=== PATIENT | female | born 1990 | race African-American/Black ===

== ENCOUNTER 2024-01-02 10:51 | Observation (INO) | payer MEDICAID, SELFPAY ==
[2024-01-02] VITALS (10 sets, daily range): BP systolic 121–130; BP diastolic 63–75; PULSE 72–81; O2SAT 100
--- NOTE | ~2024-01-02 | US_ITS ---
EXAMINATION: US OB follow up DATE: 01/02/2024 13:44 INDICATION: No care. Uncertain dates. TECHNIQUE: Real-time ultrasound of the pelvis was performed. COMPARISON: None. FINDINGS: There is a single living fetus in vertex presentation. The placenta is posterior. heart rate i s 155 beats per minute (bpm). The amniotic fluid index is 18.2 cm, which is normal. The following biometric data were obtained: Biparietal diameter (BPD): 6.6 cm; head circumference (HC): 24.0 cm; abdominal circumference (AC): 21 .9 cm; femur length (FL): 4.9 cm. These measurements are concordant. Estimated weight is 922 g +/- 138 g, which correlates with the <3rd percentile when 03/04/24 is used as estimated date of delivery. As single measurements, these parameters are each equal to the following estimated gestational ages: BPD: 26 weeks 4 days. HC: 26 weeks 1 days. AC: 26 weeks 2 days. FL: 26 weeks 3 days. estimated gestational age based solely on measurements from this exam is 26 weeks 3 days +/- 1 weeks 6 days. IMPRESSION: 1. Single living fetus in vertex presentation. 2. Small for gestational age. Estimated weight is 922 g +/- 138 g, which correlates with the < 3rd percentile when 03/04/24 is used as estimated date of delivery. Estimated date of delivery based s olely on measurements from this exam would be 04/06/2024. Reviewed, dictated and finalized at location A. [facility] IMPRESSION: 1. Single living fetus in vertex presentation. 2. Small for gestational age. Estimated weight is 922 g +/- 138 g, which correlates with the <3rd percentile when 03/04/24 is used as estimated date of delivery. Estimated date of delivery based solely on measurements from this exa m would be 04/06/2024.
--- NOTE | 2024-01-02 11:00 | OBADM ---
This patient, Joshua Deleon, admitted to the OB room OB Post 116 for observation. Patient/family oriented to hospital policies and general routines including ID bracelet, bed and alarms, visiting hours, pain management, procedures, bathroom and other care routines, personal items, smoking policy, room service/diet, and visiting hours. Patient/Family are encouraged to report perceived risks to care and to ask questions if they do not understand what they are told or what they should do.
[2024-01-02 13:38] LABS: Basophils Percent Auto 0.2 % (0.2-1.2); Eosinophils Absolute Auto 0.1 K/mm3 (0-0.3); Eosinophils Percent Auto 0.5 % (0-4.4); Hematocrit 32.5 % (37.0-47.0); Hemoglobin 10.6 g/dL (12.0-15.0); Immature Granulocyte Absolute 0.03 K/mm3 (0.00-0.031); Immature Granulocyte Percent A 0.3 % (0-0.5); Lymphocytes Absolute Auto 1.39 K/mm3 (0.9-3.2); Mean Corpuscular HGB Conc 32.6 g/dl (32-36); Mean Corpuscular Hemoglobin 30.6 pg (26-34); Mean Corpuscular Volume 93.9 fl (80-100); Mean Platelet Volume 9.6 fl (7.4-10.4); Monocytes Absolute Auto 0.6 K/mm3 (0.1-0.6); Monocytes Percent Auto 5.7 % (2.6-8.5); Neutrophils Absolute Auto 7.9 K/mm3 (1.3-6.7); Neutrophils Percent Auto 79.3 % (45.5-73.1); Platelet Count Result 401 k/mm3 (150-375); Red Blood Count 3.46 M/mm3 (4.2-5.4); Red Cell Distribution Width 13.3 % (11.5-14.5); White Blood Count 9.9 K/mm3 (4.5-10.0)
[2024-01-02 14:21] LABS: Appearance Urine Clear (Clear); Bilirubin Urine Negative (Negative); Blood Urine Negative (Negative); Color Urine Yellow (Yellow); Glucose Urine UA Negative (Negative); Ketones Urine Negative (Negative); Leukocyte Esterase Ur Negative LEU/UL (Negative); Nitrate Urine Negative (Negative); Protein Urine Negative (Negative); Specific Grav Ur 1.016 (1.001-1.035); Urobilinogen Urine 0.2 mg/dL (<2.0)
[2024-01-02 14:32] LABS: HIV 1/2 Ab P24 Ag Result Negative (Negative)
[2024-01-02 14:40] LABS: Add Urine Microscopic? NO
[2024-01-02 15:28] LABS: Hepatitis B Surface Antigen Negative (Negative); Rubella IgG Antibody 53.9 IU/ML
[2024-01-02 23:19] LABS: Amphetamine Screen Urine Negative (Negative); Barbiturate Screen Urine Negative (Negative); Benzodiazepines Screen Urine Negative (Negative); Cannabinoid Screen Urine Positive (Negative); Cocaine Screen Urine Negative (Negative); Methadone Screen Urine Negative (Negative); Opiate Screen Urine Negative (Negative); Phencyclidine Screen Urine Negative (Negative)
[2024-01-03 12:15] LABS: Rapid Plasma Reagin Non-Reactive (NonReactive)
--- NOTE | 2024-01-29 11:11 | PM.OBTRLD ---
OB - Triage/Final Diagnosis Visit Information Comments/Additional reasons for admission: I have assessed the risk for this patient, Joshua Deleon, and determined that she would benefit from observation care. Evaluation Laboratory results: Laboratory Tests 01/02/24 01/02/24 12:54 13:09 WBC 9.9 RBC 3.46 L Hgb 10.6 L Hct 32.5 L MCV 93.9 MCH 30.6 MCHC 32.6 RDW 13.3 Plt Count 401 H MPV 9.6 Immature Gran % (Auto) 0.3 Neut % (Auto) 79.3 H Lymph % (Auto) 14.0 L [place] % (Auto) 5.7 Eos % (Auto) 0.5 Baso % (Auto) 0.2 Lymph # (Auto) 1.39 [place] # (Auto) 0.6 Eos # (Auto) 0.1 Baso # (Auto) 0.0 Abs Immat Gran (auto) 0.03 Absolute Neuts (auto) 7.9 H Absolute Nucleated RBC 0.0 Nucleated RBC % 0.0 Urine Color Yellow Urine Appearance Clear Urine pH 6.0 Ur Specific [place] 1.016 Urine Protein Negative Urine Glucose (UA) Negative Urine Ketones Negative Ur Blood (Man) Negative Urine Nitrate Negative Urine Bilirubin Negative Urine Urobilinogen 0.2 Leukocyte Esterase Rfl Negative Urine Opiates Screen Negative Urine Methadone Screen Negative Ur Barbiturates Screen Negative Ur Phencyclidine Scrn Negative Ur Amphetamine Screen Negative U Benzodiazepines Scrn Negative Urine Cocaine Screen Negative U Cannabinoids Screen Positive A RPR Non-reactive Hep Bs Antigen Negative HIV 1&2 Ab/P24 Ag 4thGn Negative Rubella IgG Antibody 53.9 Blood Type O Positive Antibody Screen Negative Final Diagnosis (1) Abdominal pain affecting : Code(s): O26.899 - Other specified related conditions, unspecified trimester; R10.9 - Unspecified abdominal pain Status: Acute
== END 2024-01-02 14:45 | disposition home or self-care (01) ==
PROVIDERS: Admitting Provider Obstetrics & Gynecology; Visit Provider Obstetrics & Gynecology
DX: O26.892 Other specified pregnancy related conditions, second trimester (principal); R10.9 Unspecified abdominal pain; Z11.4 Encounter for screening for human immunodeficiency virus [HIV]; Z3A.26 26 weeks gestation of pregnancy
CPT/HCPCS: 36415; 76816; 80307; 81003; 85025; 86592; 86703; 86762; 86850; 86900; 86901; 87340; G0378; G0379; G0432

== ENCOUNTER 2024-01-14 13:59 | Observation (INO) | payer MEDICAID, SELFPAY ==
[2024-01-14 14:15] VITALS: BP 120/81; PULSE 92
[2024-01-14 14:31] VITALS: BP 115/49; PULSE 84
[2024-01-14 14:42] LABS: Appearance Urine Cloudy (Clear); Bacteria Urine 1+ /hpf; Bilirubin Urine Negative (Negative); Blood Urine Negative (Negative); Color Urine Yellow (Yellow); Glucose Urine UA Negative (Negative); Ketones Urine Negative (Negative); Leukocyte Esterase Ur Negative LEU/UL (Negative); Nitrate Urine Negative (Negative); Non Pathogenic Casts 0-2; Protein Urine Trace mg/dL (Negative); RBC Urine 0-2 /hpf (0-2); Specific Grav Ur 1.023 (1.001-1.035); Squamous Epithelial Cell Urine Occasional /hpf (Few)
[2024-01-14 14:49] LABS: Add Urine Microscopic? YES
[2024-01-14 14:59] LABS: Basophils Percent Auto 0.2 % (0.2-1.2); Eosinophils Absolute Auto 0.1 K/mm3 (0-0.3); Eosinophils Percent Auto 1.2 % (0-4.4); Hematocrit 30.7 % (37.0-47.0); Hemoglobin 9.8 g/dL (12.0-15.0); Immature Granulocyte Absolute 0.04 K/mm3 (0.00-0.031); Immature Granulocyte Percent A 0.4 % (0-0.5); Lymphocytes Absolute Auto 1.92 K/mm3 (0.9-3.2); Lymphocytes Percent Auto 19.2 % (18.3-44.2); Mean Corpuscular HGB Conc 31.9 g/dl (32-36); Mean Corpuscular Hemoglobin 29.6 pg (26-34); Mean Corpuscular Volume 92.7 fl (80-100); Mean Platelet Volume 9.3 fl (7.4-10.4); Monocytes Absolute Auto 0.7 K/mm3 (0.1-0.6); Monocytes Percent Auto 7.4 % (2.6-8.5); Neutrophils Absolute Auto 7.2 K/mm3 (1.3-6.7); Neutrophils Percent Auto 71.6 % (45.5-73.1); Platelet Count Result 382 k/mm3 (150-375); Red Blood Count 3.31 M/mm3 (4.2-5.4); Red Cell Distribution Width 13.2 % (11.5-14.5)
[2024-01-14 15:00] VITALS: BP 133/83; PULSE 94; BMI 35.9
--- NOTE | 2024-01-14 15:02 | OBADM ---
This patient, Joshua Deleon, admitted to the OB room OB Post 117 for observation. Patient/family oriented to hospital policies and general routines including ID bracelet, bed and alarms, visiting hours, pain management, procedures, bathroom and other care routines, personal items, smoking policy, room service/diet, and visiting hours. Patient/Family are encouraged to report perceived risks to care and to ask questions if they do not understand what they are told or what they should do.
[2024-01-14 15:12] LABS: Alanine Aminotransferase 14 U/L (6-35); Albumin Level 3.6 g/dL (3.5-5.1); Alkaline Phosphatase 125 U/L (38-126); Anion Gap 4 mmol/L (8-16); Aspartate Amino Transferase 18 U/L (14-36); Bilirubin,Total 0.2 mg/dL (0.2-1.3); Blood Urea Nitrogen 12 mg/dL (7-17); Calcium 8.9 mg/dL (8.4-10.2); Carbon Dioxide 24 mmol/L (22-30); Chloride 105 mmol/L (98-107); Estimated CRCL calculation 145 ml/min; Estimated Glomerular Filt Rate > 60; Glucose 104 mg/dL (65-110); Potassium 3.4 mmol/L (3.4-5.0); Sodium 133 mmol/L (137-145)
[2024-01-14] MEDS: FAMOTIDINE 20 MG TABLET PO (15:24)
[2024-01-14] MEDS: MAG HYDROX/AL HYDROX/SIMETH 30 ML UDC PO (15:24)
--- NOTE | 2024-01-16 23:29 | P.PNOB_ITS ---
OB - Triage/Final Diagnosis Visit Information Comments/Additional reasons for admission: I have assessed the risk for this patient, Joshua Deleon, and determined that she would benefit from observation care. Evaluation Laboratory results: Laboratory Tests 01/14/24 01/14/24 14:28 14:52 WBC 10.0 RBC 3.31 L Hgb 9.8 L Hct 30.7 L MCV 92.7 MCH 29.6 MCHC 31.9 L RDW 13.2 Plt Count 382 H MPV 9.3 Immature Gran % (Auto) 0.4 Neut % (Auto) 71.6 Lymph % (Auto) 19.2 [place] % (Auto) 7.4 Eos % (Auto) 1.2 Baso % (Auto) 0.2 Lymph # (Auto) 1.92 [place] # (Auto) 0.7 H Eos # (Auto) 0.1 Baso # (Auto) 0.0 Abs Immat Gran (auto) 0.04 H Absolute Neuts (auto) 7.2 H Absolute Nucleated RBC 0.0 Nucleated RBC % 0.0 Sodium 133 L Potassium 3.4 Chloride 105 Carbon Dioxide 24 Anion Gap 4 L BUN 12 Creatinine 0.50 L Estim Creat Clear Calc 145 Estimated GFR > 60 Glucose 104 Calcium 8.9 Total Bilirubin 0.2 AST 18 ALT 14 Alkaline Phosphatase 125 Total Protein 7.0 Albumin 3.6 Urine Color Yellow Urine Appearance Cloudy H Urine pH 7.0 Ur Specific [place] 1.023 Urine Protein Trace Urine Glucose (UA) Negative Urine Ketones Negative Ur Blood (Man) Negative Urine Nitrate Negative Urine Bilirubin Negative Urine Urobilinogen 1.0 Leukocyte Esterase Rfl Negative Urine RBC 0-2 Urine WBC 6-10 H Ur Squamous Epith Cells Occasional Urine Bacteria 1+ H Urine Casts 0-2 Final Diagnosis (1) Abdominal pain affecting : Code(s): O26.899 - Other specified related conditions, unspecified trimester; R10.9 - Unspecified abdominal pain Status: Acute
== END 2024-01-14 15:40 | disposition home or self-care (01) ==
PROVIDERS: Admitting Provider Obstetrics & Gynecology; Visit Provider Obstetrics & Gynecology
DX: O26.893 Other specified pregnancy related conditions, third trimester (principal); R10.9 Unspecified abdominal pain; Z3A.38 38 weeks gestation of pregnancy
CPT/HCPCS: 36415; 80053; 81001; 85025; 87086; A9270; G0378; G0379

== ENCOUNTER 2024-02-08 12:57 | Observation (INO) | payer MEDICAID, SELFPAY ==
[2024-02-08] VITALS (11 sets, daily range): BP systolic 112–139; BP diastolic 57–81; PULSE 71–82; BMI 37.8
--- NOTE | 2024-02-08 13:30 | OBADM ---
This patient, Joshua Deleon, admitted to the OB room 112 for observation. Patient/family oriented to hospital policies and general routines including ID bracelet, bed and alarms, visiting hours, pain management, procedures, bathroom and other care routines, personal items, smoking policy, room service/diet, and visiting hours. Patient/Family are encouraged to report perceived risks to care and to ask questions if they do not understand what they are told or what they should do.
[2024-02-08 14:36] LABS: Appearance Urine Clear (Clear); Bilirubin Urine Negative (Negative); Blood Urine Negative (Negative); Color Urine Dark Yellow (Yellow); Glucose Urine UA Negative (Negative); Ketones Urine Negative (Negative); Leukocyte Esterase Ur Negative LEU/UL (Negative); Nitrate Urine Negative (Negative); Protein Urine Negative (Negative); Specific Grav Ur 1.017 (1.001-1.035); pH Urine 8.5 (5.0-9.0)
[2024-02-08 14:48] LABS: Add Urine Microscopic? NO
[2024-02-08] MEDS: NIFEdipine 10 MG CAPSULE PO ×2 (15:40→16:13)
--- NOTE | 2024-02-29 11:58 | PM.OBTRLD ---
OB - Triage/Final Diagnosis Visit Information Comments/Additional reasons for admission: I have assessed the risk for this patient, Joshua Deleon, and determined that she would benefit from observation care. Evaluation Laboratory results: Laboratory Tests 02/08/24 14:20 Urine Color Dark yellow Urine Appearance Clear Urine pH 8.5 Ur Specific [place] 1.017 Urine Protein Negative Urine Glucose (UA) Negative Urine Ketones Negative Ur Blood (Man) Negative Urine Nitrate Negative Urine Bilirubin Negative Urine Urobilinogen 1.0 Leukocyte Esterase Rfl Negative Final Diagnosis (1) Abdominal pain affecting : Code(s): O26.899 - Other specified related conditions, unspecified trimester; R10.9 - Unspecified abdominal pain Status: Acute
== END 2024-02-08 18:18 | disposition home or self-care (01) ==
PROVIDERS: Admitting Provider Obstetrics & Gynecology; Visit Provider Obstetrics & Gynecology
DX: O26.893 Other specified pregnancy related conditions, third trimester (principal); R10.9 Unspecified abdominal pain; Z3A.31 31 weeks gestation of pregnancy
CPT/HCPCS: A9270; G0378; G0379

== ENCOUNTER 2024-02-17 11:48 | Observation (INO) | payer MEDICAID, SELFPAY ==
[2024-02-17 11:58] VITALS: BP 140/73; PULSE 85
[2024-02-17 12:00] VITALS: BP 124/58; PULSE 91
[2024-02-17 12:15] VITALS: BP 124/73; PULSE 92
[2024-02-17 12:18] VITALS: BMI 38.1
--- NOTE | 2024-02-17 12:19 | OBADM ---
This patient, Joshua Deleon, admitted to the OB room OB Post 116 for observation. Patient/family oriented to hospital policies and general routines including ID bracelet, bed and alarms, visiting hours, pain management, procedures, bathroom and other care routines, personal items, smoking policy, room service/diet, and visiting hours. Patient/Family are encouraged to report perceived risks to care and to ask questions if they do not understand what they are told or what they should do. Pt. arrives to unit via EMS, EFM X2 applied, abdomen soft and non-tender, pt. denies vaginal bleeding and LOF. Pt. reports abdominal pain since approx. 1000 this a.m., but that she did not feel well all day yesterday. She denies vomiting and diarrhea, states she had a regular BM today. Pt. is weepy, but denies any problems at home, denies any other problems at this time.
[2024-02-17 12:30] VITALS: BP 120/74; PULSE 79; TEMP 36.4
[2024-02-17 13:11] LABS: Appearance Urine Clear (Clear); Bacteria Urine None Seen /hpf; Bilirubin Urine Negative (Negative); Blood Urine Negative (Negative); Color Urine Dark Yellow (Yellow); Glucose Urine UA Negative (Negative); Ketones Urine Trace mg/dL (Negative); Leukocyte Esterase Ur Negative LEU/UL (Negative); Nitrate Urine Negative (Negative); Non Pathogenic Casts 0-2; Protein Urine 1+ mg/dL (Negative); RBC Urine 0-2 /hpf (0-2); Squamous Epithelial Cell Urine None Seen /hpf (Few); WBC Urine 0-5 /hpf (0-3)
[2024-02-17 13:12] LABS: Specific Grav Ur 1.031 (1.001-1.035)
[2024-02-17 13:13] LABS: Add Urine Microscopic? YES
--- NOTE | 2024-03-20 07:33 | PM.OBTRLD ---
OB - Triage/Final Diagnosis Visit Information Comments/Additional reasons for admission: I have assessed the risk for this patient, Joshua Deleon, and determined that she would benefit from observation care. Evaluation Laboratory results: Laboratory Tests 02/17/24 12:45 Urine Color Dark yellow Urine Appearance Clear Urine pH 7.0 Ur Specific [place] 1.031 Urine Protein 1+ H Urine Glucose (UA) Negative Urine Ketones Trace H Ur Blood (Man) Negative Urine Nitrate Negative Urine Bilirubin Negative Urine Urobilinogen 1.0 Leukocyte Esterase Rfl Negative Urine RBC 0-2 Urine WBC 0-5 Ur Squamous Epith Cells None seen Urine Bacteria None seen Urine Casts 0-2 Final Diagnosis (1) False labor: Code(s): O47.9 - False labor, unspecified Status: Acute
== END 2024-02-17 14:49 ==
PROVIDERS: Admitting Provider Obstetrics & Gynecology; Visit Provider Obstetrics & Gynecology
DX: O47.03 False labor before 37 completed weeks of gestation, third trimester (principal); Z3A.33 33 weeks gestation of pregnancy
CPT/HCPCS: 81001; G0378; G0379

== ENCOUNTER 2024-03-27 12:51 | Observation (INO) | payer OTHER, SELFPAY ==
[2024-03-27 13:16] VITALS: BP 144/98; PULSE 77
--- NOTE | 2024-03-27 13:39 | PC.NURSE ---
In to check on pt, Pt snoring.
[2024-03-27 13:41] VITALS: BP 131/78; PULSE 66
--- NOTE | 2024-03-27 15:31 | OBADM ---
This patient, Joshua Deleon, admitted to the OB room Labor/Delivery/Recovery 105 for observation. Patient/family oriented to hospital policies and general routines including ID bracelet, bed and alarms, visiting hours, pain management, procedures, bathroom and other care routines, personal items, smoking policy, room service/diet, and visiting hours. Patient/Family are encouraged to report perceived risks to care and to ask questions if they do not understand what they are told or what they should do.
--- NOTE | 2024-04-18 18:35 | PM.OBTRLD ---
OB - Triage/Final Diagnosis Visit Information Comments/Additional reasons for admission: I have assessed the risk for this patient, Joshua Deleon, and determined that she would benefit from observation care. Final Diagnosis (1) Abdominal pain affecting : Code(s): O26.899 - Other specified related conditions, unspecified trimester; R10.9 - Unspecified abdominal pain Status: Acute
== END 2024-03-27 14:30 | disposition home or self-care (01) ==
PROVIDERS: Admitting Provider Obstetrics & Gynecology; Visit Provider Obstetrics & Gynecology
DX: O26.893 Other specified pregnancy related conditions, third trimester (principal); R10.9 Unspecified abdominal pain; Z3A.38 38 weeks gestation of pregnancy
CPT/HCPCS: 84112; G0378; G0379

== ENCOUNTER 2024-03-30 05:10 | Inpatient (IN) | payer OTHER, SELFPAY ==
[2024-03-30] VITALS (65 sets, daily range): BP systolic 94–161; BP diastolic 53–98; PULSE 53–83; RESP 16–20; TEMP 36.1–36.7; O2SAT 97–100; BMI 44.9
[2024-03-30] MEDS: LACTATED RINGERS 1,000 ML 125 ML IV CONT (05:45)
[2024-03-30 06:00] LABS: Basophils Percent Auto 0.1 % (0.2-1.2); Eosinophils Absolute Auto 0.1 K/mm3 (0-0.3); Eosinophils Percent Auto 0.7 % (0-4.4); Hematocrit 34.2 % (37.0-47.0); Immature Granulocyte Absolute 0.03 K/mm3 (0.00-0.031); Immature Granulocyte Percent A 0.3 % (0-0.5); Lymphocytes Absolute Auto 2.05 K/mm3 (0.9-3.2); Lymphocytes Percent Auto 21.5 % (18.3-44.2); Mean Corpuscular HGB Conc 32.2 g/dl (32-36); Mean Corpuscular Hemoglobin 29.9 pg (26-34); Mean Corpuscular Volume 92.9 fl (80-100); Monocytes Absolute Auto 0.7 K/mm3 (0.1-0.6); Neutrophils Absolute Auto 6.7 K/mm3 (1.3-6.7); Neutrophils Percent Auto 70.4 % (45.5-73.1); Platelet Count Result 381 k/mm3 (150-375); Red Blood Count 3.68 M/mm3 (4.2-5.4); Red Cell Distribution Width 14.1 % (11.5-14.5); White Blood Count 9.6 K/mm3 (4.5-10.0)
[2024-03-30] MEDS: ACETAMINOPHEN 500 MG TABLET 1000 MG PO (06:00)
--- NOTE | 2024-03-30 06:34 | LDADM ---
This patient, Joshua Deleon, was admitted to Labor/Delivery/Recovery 120 on 03/30/24 at 05:10. Plans for labor, pain management and were discussed with patient. Patient/family oriented to hospital policies and general routines including ID bracelet, bed and alarms, visiting hours, pain management, procedures, bathroom and other care routines, personal items, smoking policy, room service/diet and guest tray routines, security routines, and visiting hours. Patient/Family are encouraged to report perceived risks to care and to ask questions if they do not understand what they are told or what they should do. See OBIX for further documentation.
[2024-03-30 06:48] LABS: Rubella IgG Antibody 54.6 IU/ML
[2024-03-30 06:50] LABS: HIV 1/2 Ab P24 Ag Result Negative (Negative)
--- NOTE | 2024-03-30 07:33 | WPDANESEPP ---
Anes - Eval Pre Procedure Procedure: Operation Date: 03/30/24 07:30 Proposed Procedures p Repeat Section - Zaid Gerardo MD Date/Time: 03/30/24 07:33 Pre Op Diagnosis: C/S Patient Data Age: 34 Gender: F Height: 1.6 m Weight: 115 kg Last Vital Signs Pulse 78 03/30/24 07:30 BP 137/75 03/30/24 07:30 O2 Del Method Room Air 03/30/24 06:35 Allergies Allergy/AdvReac Type Severity Reaction Status Date / Time No Known Allergies Allergy Verified 01/14/24 14:55 Laboratory Tests 03/30/24 03/30/24 05:25 05:58 WBC 9.6 K/mm3 (4.5-10.0) RBC 3.68 L M/mm3 (4.2-5.4) Hgb 11.0 L g/dL (12.0-15.0) Hct 34.2 L % (37.0-47.0) MCV 92.9 fl (80-100) MCH 29.9 pg (26-34) MCHC 32.2 g/dl (32-36) RDW 14.1 % (11.5-14.5) Plt Count 381 H k/mm3 (150-375) MPV 10.0 fl (7.4-10.4) Immature Gran % (Auto) 0.3 % (0-0.5) Neut % (Auto) 70.4 % (45.5-73.1) Lymph % (Auto) 21.5 % (18.3-44.2) [place] % (Auto) 7.0 % (2.6-8.5) Eos % (Auto) 0.7 % (0-4.4) Baso % (Auto) 0.1 L % (0.2-1.2) Lymph # (Auto) 2.05 K/mm3 (0.9-3.2) [place] # (Auto) 0.7 H K/mm3 (0.1-0.6) Eos # (Auto) 0.1 K/mm3 (0-0.3) Baso # (Auto) 0.0 K/mm3 (0.0-0.1) Abs Immat Gran (auto) 0.03 K/mm3 (0.00-0.031) Absolute Neuts (auto) 6.7 K/mm3 (1.3-6.7) Absolute Nucleated RBC 0.000 K/mm3 (0.0-0.012) Nucleated RBC % 0.0 % (0.0-0.2) RPR Pending HIV 1&2 Ab/P24 Ag 4thGn Negative (Negative) Rubella IgG Antibody 54.6 IU/ML (10 - ) Blood Type O Positive Antibody Screen Pending Patient hx anesthesia problems: none Family hx anesthesia problems: none Results Review: All pre-operative results and documents have been reviewed as part of the pre-operative evaluation. [facility] Family History Family History Mother Asthma Chronic obstructive pulmonary disease Hypertension Father Cerebrovascular accident Social History Social History Smoking status: Former smoker Second hand tobacco smoke exposure: Yes Last use: unknown, quit Do You Feel Safe in your Home?: Yes Lack of Transportation: No Lack of Food: Never True Current Housing: I Have Housing Concerned About Future Housing: No Difficulty Paying Gas/Electric Bills: No Difficulty Paying for Meds: No Currently Unemployed: No Education: High School Diploma/GED Difficulty w/ Childcare or Family Care: No Spiritual care concerns: No Exam Day of Procedure 03/30/24 07:33 Patient weight: obese Heart: regular rate and rhythm Lungs: clear to auscultation Airway: Mallampati scale Neurological: alert and oriented
--- NOTE | 2024-03-30 07:45 | WPDANESEPPF ---
Anes - Initial Pre Proc Eval Procedure: Operation Date: 03/30/24 07:30 Proposed Procedures p Repeat Section - Zaid Gerardo MD Date/Time: 03/30/24 07:45 Surgeon: Zaid Gerarod MD Pre Op Diagnosis: C/S Patient Data Age: 34 Gender: F Height: 1.6 m Weight: 115 kg Last Vital Signs Pulse 81 03/30/24 07:45 BP 145/81 H 03/30/24 07:45 O2 Del Method Room Air 03/30/24 06:35 Allergies Allergy/AdvReac Type Severity Reaction Status Date / Time No Known Allergies Allergy Verified 01/14/24 14:55 Laboratory Tests 03/30/24 03/30/24 05:25 05:58 WBC 9.6 K/mm3 (4.5-10.0) RBC 3.68 L M/mm3 (4.2-5.4) Hgb 11.0 L g/dL (12.0-15.0) Hct 34.2 L % (37.0-47.0) MCV 92.9 fl (80-100) MCH 29.9 pg (26-34) MCHC 32.2 g/dl (32-36) RDW 14.1 % (11.5-14.5) Plt Count 381 H k/mm3 (150-375) MPV 10.0 fl (7.4-10.4) Immature Gran % (Auto) 0.3 % (0-0.5) Neut % (Auto) 70.4 % (45.5-73.1) Lymph % (Auto) 21.5 % (18.3-44.2) [place] % (Auto) 7.0 % (2.6-8.5) Eos % (Auto) 0.7 % (0-4.4) Baso % (Auto) 0.1 L % (0.2-1.2) Lymph # (Auto) 2.05 K/mm3 (0.9-3.2) [place] # (Auto) 0.7 H K/mm3 (0.1-0.6) Eos # (Auto) 0.1 K/mm3 (0-0.3) Baso # (Auto) 0.0 K/mm3 (0.0-0.1) Abs Immat Gran (auto) 0.03 K/mm3 (0.00-0.031) Absolute Neuts (auto) 6.7 K/mm3 (1.3-6.7) Absolute Nucleated RBC 0.000 K/mm3 (0.0-0.012) Nucleated RBC % 0.0 % (0.0-0.2) RPR Pending HIV 1&2 Ab/P24 Ag 4thGn Negative (Negative) Rubella IgG Antibody 54.6 IU/ML (10 - ) Blood Type O Positive Antibody Screen Negative Patient hx anesthesia problems: none Family hx anesthesia problems: none Results Review: All pre-operative results and documents have been reviewed as part of the pre-operative evaluation. [facility] Family History Family History Mother Asthma Chronic obstructive pulmonary disease Hypertension Father Cerebrovascular accident Social History Social History Smoking status: Former smoker Second hand tobacco smoke exposure: Yes Last use: unknown, quit Do You Feel Safe in your Home?: Yes Lack of Transportation: No Lack of Food: Never True Current Housing: I Have Housing Concerned About Future Housing: No Difficulty Paying Gas/Electric Bills: No Difficulty Paying for Meds: No Currently Unemployed: No Education: High School Diploma/GED Difficulty w/ Childcare or Family Care: No Spiritual care concerns: No Anes - Eval Final PreProcedure Day of Procedure 03/30/24 07:45 Patient weight: morbidly obese Heart: regular rate and rhythm Lungs: clear to auscultation Airway: Mallampati scale class II Neurological: lethargic Last oral intake: >/= 8 hours ASA classification: III Emergent: no Anesthetic plan: proceed Anesthesia type and monitoring: regional spinal and standard monitoring Results Review: All pre-operative results and documents have been reviewed as part of the pre-operative evaluation. Informed Consent: The patient's anesthetic plan and its attendant risks and benefits were discussed with the patient/family/POA. Questions were solicited and answers provided to the satisfaction of the patient/family/POA.
[2024-03-30] MEDS: ceFAZolin 2 GM/D5W 50 ML 2 GM/50 ML BAG IVPB (07:46)
[2024-03-30] MEDS: ONDANSETRON INJ 4 MG/2 ML VIAL IV PUSH (07:47)
[2024-03-30] MEDS: FAMOTIDINE 20 MG/2 ML VIAL IV PUSH (07:49)
--- NOTE | 2024-03-30 08:59 | WPDHPUPDATE1 ---
History and Physical Update Update Date/Time: 03/30/24 08:59 History and Physical has been reviewed, including an updated exam of the patient. There are NO changes in the patient's condition. Risks, benefits, and alternatives have been discussed and questions answered. Patient agrees to proceed with procedure.
--- NOTE | 2024-03-30 08:59 | PM.IMHP ---
H&P: HPI History of Present Illness Date/Time: 03/30/24 08:59 Chief Complaint: term Narrative: This patient is a 34-year-old multiparous female with a term gestation and a previous delivery. We agreed to repeat delivery. The patient understands the details of the procedure. The procedure has been explained in detail. She understands the risks. She understands that injuries may occur that result in hospitalization, more surgery, and severe illness. She understands risk of hemorrhage and infection. She denies any chest pain or shortness of breath. She denies any nausea, vomiting, fever, chills. Review of Systems Review of Systems: All systems reviewed & are unremarkable except as noted in HPI and below Constitutional: Constitutional: Denies chills, Denies fatigue, Denies fever(s) and Denies weakness Eyes: Eyes: Denies blurry vision, Denies change in vision, Denies loss of peripheral vision, Denies loss of vision, Denies other visual disturbances and Denies eye pain ENT: Denies vertigo, Denies dizziness, Denies hearing loss, Denies mouth pain, Denies nasal obstruction, Denies neck mass and Denies neck pain Cardiovascular: Cardiovascular: Denies chest pain, Denies diaphoresis, Denies syncope, Denies leg edema and Denies dyspnea Respiratory: Respiratory: Denies chest congestion, Denies cough, Denies hemoptysis, Denies dyspnea and Denies wheezing Gastrointestinal: Gastrointestinal: Denies abdominal pain, Denies constipation, Denies diarrhea, Denies nausea and Denies vomiting Genitourinary: Genitourinary: Denies hematuria, Denies change in libido, Denies nocturia, Denies genital lesions, Denies flank pain and Denies urinary urgency Musculoskeletal: Musculoskeletal: Denies abnormal gait, Denies back pain, Denies myalgias, Denies arthralgias, Denies joint swelling, Denies muscle weakness and Denies neck pain Integumentary/Breasts: Skin/Breast: Denies swelling, Denies breast pain, Denies breast mass, Denies dry skin, Denies nipple discharge, Denies unusual bruising and Denies jaundice Neurologic: Denies Neuro-related abnormal movements, Denies Abnormal speech present, Denies abnormal gait, Denies behavioral changes, Denies confusion, Denies vertigo, Denies dizziness, Denies syncope, Denies loss of vision, Denies memory loss, Denies convulsions and Denies weakness Psychiatric: Psychiatric: Denies abnormal sleep pattern, Denies behavioral changes, Denies change in libido, Denies confusion, Denies depression, Denies anhedonia and Denies memory loss Endocrine: Endocrine: Reports no additional endocrine complaints, Denies change in libido and Denies fatigue Hematologic/Lymphatic: Hematologic/Lymphatic: Reports no additional hematologic/lymphatic complaints Allergic/Immunologic: Allergic/Immunologic: Reports no additional allergic/immunologic complaints and Denies wheezing PMFSH Family History Family History Mother Asthma Chronic obstructive pulmonary disease Hypertension Father Cerebrovascular accident Social History Social History Smoking status: Former smoker Second hand tobacco smoke exposure: Yes Last use: unknown, quit Do You Feel Safe in your Home?: Yes Lack of Transportation: No Lack of Food: Never True Current Housing: I Have Housing Concerned About Future Housing: No Difficulty Paying Gas/Electric Bills: No Difficulty Paying for Meds: No Currently Unemployed: No Education: High School Diploma/GED Difficulty w/ Childcare or Family Care: No Spiritual care concerns: No Meds Home Medications and Allergies Allergies Allergy/AdvReac Type Severity Reaction Status Date / Time No Known Allergies Allergy Verified 01/14/24 14:55 Vital Signs Vital Signs - 24 hr 03/30/24 06:22 03/30/24 06:45 03/30/24 07:00 Pulse Rate 83 75 82 Blood Pressure 14
--- NOTE | 2024-03-30 09:02 | P.PCNOB_ITS ---
OB - Delivery Note Procedure Delivery date: 03/30/24 Pre-op diagnosis: Previous Delivery Post-op Diagnosis: Same Procedure Performed: Repeat Surgeon: Zaid Gerardo MD findings - normal pelvic anatomy with term Anesthesia type: General Description of Procedure/Findings: The patient was taken the operating room.? She was prepped and draped in dorsal supine position with a leftward tilt.? This was done after spinal anesthetic was applied.? A low-transverse skin incision was made and carried down till of the fascia with the knife.? The fascial incision was made with the knife.? The fascial incision was extended laterally with Cote scissors.? The fascia was tented upward superiorly and inferiorly the rectus muscles were dissected off bluntly.? The rectus muscles were the midline.? The preperitoneal fat and peritoneum were dissected open bluntly at the superior aspect of the sep arated rectus muscles.? The peritoneal incision was extended superior and inferior with good position of bladder.? The uterine incision was made with a scalpel down to the level of the amniotic cavity.? The amniotic cavity was entered bluntly.? The was delivered.? The cord was clamped and cut and the infant was handed off to waiting pediatric staff.? Cord bloods were obtained.? The placenta was removed manually.? The uterus was exteriorized.? The uterus was cleared of all clots, debris and membranes.? The uterus was closed in 0 Vicryl running lock fashion.? An imbricating over a was placed along the incision line as well.? The uterus was returned to the abdomen.? The gutters were cleared of all clots and debris.? The fascia was closed with 0 Vicryl running fashion.? The subcutaneous tissue was irrigated pinpoint bleeders were cauterized.? The skin was closed with subcuticular absorbable stalin.? The skin incision line was covered with glue.? The patient tolerated the procedure well.? She has taken recovery room in stable condition.? Sponge lap and needle counts were correct x2.? Baby Weeks of gestation at delivery: 39
[2024-03-30] MEDS: MORPHINE SULFATE INJ (*CRX) 10 MG/ML AMP 2 MG IV PUSH ×3 (10:31→11:15)
[2024-03-30 11:19] LABS: Rapid Plasma Reagin Non-Reactive (NonReactive)
[2024-03-30] MEDS: LIDOCAINE 5% PATCH 1 PATCH TRANSDERM (11:32)
[2024-03-30] MEDS: ACETAMINOPHEN 325 MG TABLET 650 MG PO ×3 (11:40→23:00)
[2024-03-30] MEDS: KETOROLAC 15 MG/ML VIAL (*BKC) IV PUSH ×3 (11:41→23:01)
--- NOTE | 2024-03-30 12:10 | OBPPTRN ---
Patient transferred to post room #285 via stretcher. Support person present. Oriented to unit, room, information board, rooming in, admission packet and security measures. Patient verbalizes understanding.
[2024-03-30] MEDS: DEXTROSE 5%/0.45% SOD CHL 1,000 ML 125 ML IV CONT (16:30)
[2024-03-30] MEDS: HYDROcodone/acetaminophen (*CRX) 10-325 MG TABLET 1 TAB PO ×2 (16:46→23:01)
[2024-03-30] MEDS: DOCUSATE SODIUM 100 MG CAPSULE PO (16:46)
[2024-03-30] MEDS: SIMETHICONE 80 MG TAB.CHEW PO (16:46)
--- NOTE | 2024-03-30 19:45 | PC.NURSE ---
[id number] pt reqesting that rodriguez catheter be removed and she would like to get up to a cammode to try to void. Pt tolerating getting up with assist fair, she was unable to void at this time. An pad changed. Return to bed
--- NOTE | 2024-03-30 20:00 | PC.NURSE ---
1500- RN offered to mother to bring baby in to her room bc she was due for her next feeding, and asked if she would like to feed the baby. Mother requested that RN feed the baby at the nurses station bc she was tired and wanted to take a nap.
[2024-03-31 03:15] VITALS: BP 146/74; PULSE 67; RESP 18; TEMP 36.4; O2SAT 100
[2024-03-31 05:05] LABS: Basophils Percent Auto 0.2 % (0.2-1.2); Eosinophils Absolute Auto 0.1 K/mm3 (0-0.3); Eosinophils Percent Auto 1.1 % (0-4.4); Hematocrit 30.9 % (37.0-47.0); Hemoglobin 9.8 g/dL (12.0-15.0); Immature Granulocyte Absolute 0.05 K/mm3 (0.00-0.031); Immature Granulocyte Percent A 0.4 % (0-0.5); Lymphocytes Absolute Auto 1.92 K/mm3 (0.9-3.2); Lymphocytes Percent Auto 16.1 % (18.3-44.2); Mean Corpuscular HGB Conc 31.7 g/dl (32-36); Mean Corpuscular Hemoglobin 30.2 pg (26-34); Mean Corpuscular Volume 95.1 fl (80-100); Mean Platelet Volume 10.4 fl (7.4-10.4); Monocytes Percent Auto 8.7 % (2.6-8.5); Neutrophils Absolute Auto 8.8 K/mm3 (1.3-6.7); Neutrophils Percent Auto 73.5 % (45.5-73.1); Platelet Count Result 350 k/mm3 (150-375); Red Blood Count 3.25 M/mm3 (4.2-5.4); Red Cell Distribution Width 14.1 % (11.5-14.5); White Blood Count 11.9 K/mm3 (4.5-10.0)
[2024-03-31] MEDS: ACETAMINOPHEN 325 MG TABLET 650 MG PO ×3 (05:22→19:25)
[2024-03-31] MEDS: IBUPROFEN 600 MG TABLET PO ×3 (05:23→19:25)
[2024-03-31 07:54] VITALS: BP 121/69; PULSE 66; RESP 16; TEMP 36.7; O2SAT 99
--- NOTE | 2024-03-31 08:08 | P.PNOB_ITS ---
OB - PN: Subj Subjective Date/time seen: 03/31/24 08:08 Patient comments: no complaints, pain well controlled, tolerating diet and flatus present OB - PN: Obj Data Labs 03/31/24 03:33 Labs: Laboratory Results - last 24 hr 03/30/24 03/31/24 05:25 03:33 WBC 11.9 H RBC 3.25 L Hgb 9.8 L Hct 30.9 L MCV 95.1 MCH 30.2 MCHC 31.7 L RDW 14.1 Plt Count 350 MPV 10.4 Immature Gran % (Auto) 0.4 Neut % (Auto) 73.5 H Lymph % (Auto) 16.1 L [place] % (Auto) 8.7 H Eos % (Auto) 1.1 Baso % (Auto) 0.2 Lymph # (Auto) 1.92 [place] # (Auto) 1.0 H Eos # (Auto) 0.1 Baso # (Auto) 0.0 Abs Immat Gran (auto) 0.05 H Absolute Neuts (auto) 8.8 H Absolute Nucleated RBC 0.000 Nucleated RBC % 0.0 RPR Non-reactive OB - PN A/P Plan day: 1 Comments: Post Op LTCS - no problems, routine recovery Time Spent With Patient Time: Total time spent is greater than 50% in coordination of care (as documented) at patient's floor/unit and/or counseling patient: Exam Const: General: cooperative, healthy appearing, comfortable and no acute distress Resp: Auscultation: no crackles, no rales, no rhonchi and no wheezes Cardio: Rhythm: regular rhythm Heart sounds: no click and no murmurs GI: Inspection: non-distended Auscultation: normal bowel sounds Extrem: General: normal to inspection, no pedal edema and no calf tenderness
[2024-03-31 08:11] VITALS: BP 121/69; PULSE 66; RESP 15; TEMP 36.7; O2SAT 100
[2024-03-31] MEDS: POLYSACCHARIDE IRON COMPLEX 150 MG CAPSULE PO ×2 (08:13→17:41)
[2024-03-31] MEDS: SIMETHICONE 80 MG TAB.CHEW PO ×3 (08:13→17:41)
[2024-03-31] MEDS: MULTIVIT/MIN/PREN/FOL AC/IRON TABLET 1 TAB PO (08:13)
[2024-03-31] MEDS: DOCUSATE SODIUM 100 MG CAPSULE PO ×2 (08:13→17:41)
[2024-03-31] MEDS: HYDROcodone/acetaminophen (*CRX) 5-325 MG TABLET 1 TAB PO (08:18)
--- NOTE | 2024-03-31 09:04 | WPDANLDNPN2 ---
Anes-Prog Note L&D-Neuraxial Date/Time: 03/31/24 09:04 Neuraxial medications: intrathecal PF morphine Opiod-related complaints: none Patient feedback: Patient satisfied with post-operative pain management.
--- NOTE | 2024-03-31 09:04 | WPDANLDPN2 ---
Anes-Prog Note L&D Date/Time: 03/31/24 09:04 Comfortable throughout: section Neuraxial method: spinal Epidural/Spinal procedure site: clean & non-tender Neuro status: Neuro function grossly intact. Cardiovascular status: normal Respiratory status: normal Airway patency: baseline Mental status: baseline Post-Op hydration status: normal Vital Signs: Last Vital Signs Temp 36.7 C 03/31/24 08:11 Pulse 66 03/31/24 08:11 Resp 15 03/31/24 08:11 BP 121/69 03/31/24 08:11 Pulse Ox 100 03/31/24 08:11 O2 Del Method Room Air 03/30/24 16:00 Pain score (VAS): 2 I/O: Intake & Output 03/30/24 03/31/24 03/31/24 23:59 07:59 15:59 Intake Total 500 800 Output Total 620 Balance -120 800 Post-procedural complaints: none Patient feedback: Patient satisfied with anesthetic care.
--- NOTE | 2024-03-31 12:10 | PC.NURSE ---
1204- RN called care coordination to follow up and discuss plan, they replied they would try to round on the patient today.
[2024-03-31] MEDS: HYDROcodone/acetaminophen (*CRX) 10-325 MG TABLET 1 TAB PO ×2 (13:02→17:41)
--- NOTE | 2024-03-31 13:37 | PC.NURSE ---
1210-discussed plan for patient. Spoke with Dulce on the phone and she said said dcfs will likely round on the patient. THe baby's father reported that the plan is for the baby and mother to live with him upon discharge. He also reported she did not receive care until her 6th month of .
--- NOTE | 2024-03-31 15:10 | PCCCNOTE ---
Addendum entered by BREA Crockett 04/02/24 16:17: 04/02/24 Received call from Tamy with [facility] ([phone]) who reports she will be coming to speak with pt. this morning and going to Asa HERNANDEZ home this afternoon to meet with him. Tamy is aware baby and pt. are ready for discharge today. 16:00 Received call from Tamy that she is on her way to the hospital to take custody of the child. Pt. and Asa aware of this and pt. is requesting discharge. Pt. has been given information to follow up for herself including PMD, counseling, housing and if needed substance information as she tested positive for marijuana during . Tamy plans to go stay with Asa and Asa' mother at discharge in [place]. Tamy also reports that pt. will be asked to complete these services through their department as well. RN made aware that DCFScott Tamy will be here shortly to take custody of the baby this afternoon. Original Note: 1300: CC called for a consult regarding pt not having permanent housing and questionable who has custody of her ten-year old child. Per the pt nurse, Ana Laura, pt has not had interaction with the baby and has requested baby stay in the nursery. When the staff brings the baby to the room, she does not want to hold or feed the baby and asks them to take her back to the nursery. When the RN has asked about custody of her other child, she only discloses minimal information. She thinks her mother has custody, but doesn't know anything about the child or their whereabouts. A online [facility] report was filed. 1400: [facility] director social called regarding this report. They are going to come see the pt within the next 24 hours. If the mother is going to be discharged prior to them coming, please call DCFS before she leaves. Pt.'s nurse, Ana Laura notified of this as well.
--- NOTE | 2024-03-31 15:20 | PCCCNOTE ---
The [facility] reference number is [id number].
--- NOTE | 2024-03-31 15:41 | PC.NURSE ---
1400- care coordination (Dulce) called and updated RN that DCFS would like to consult with the pt before she goes home. They will stop by today or tomorrow by 1400 at the latest. If the pt gets discharged before then, the RN is to let the patient know DCFS will be in touch.
--- NOTE | 2024-03-31 16:06 | PC.NURSE ---
DCFS worker, February, called in for information and report on the patient. She states she will be here later this evening to see the patient.
--- NOTE | 2024-03-31 16:13 | PCCCNOTE ---
1551: Lexy from [facility] called to confirm report, she will be here this evening to see pt.
[2024-03-31 19:32] VITALS: BP 142/78; PULSE 74; RESP 16; TEMP 37.2; O2SAT 99
--- NOTE | 2024-03-31 20:26 | PC.NURSE ---
03/31/2024 I entered Joshua's room and mother had baby in her arms and baby was suckling a pacifier. After I introduced myself I told mother I wanted to do an assessment on Joshua and I noticed also there was a bottle in the crib that Joshua had fed baby at 1846. 13 cc was out of the bottle in the crib and Joshua said, She needs more formula, diapers, and wipes. I agreed and told her I would get the supplies baby needs. I then put baby in the crib, changed baby's diaper and performed mother's assessment. Baby was suckling the pacifier and showing signs of wanting to eat more. I retrieved formula, diapers, and wipes and gave a nippled bottle to mother. She took baby and began feeding baby. About 30 minutes later I checked again on mother and she had fed baby 20 cc. I asked if Joshua was able to get baby to burp and she replied, A little one... I then asked mother if she needed anything else and mother replied, No, I'm just going to watch TV and get up and go to the bathroom. I took baby from mother and placed her in the open crib. I asked mother to call out if any needs arise. Mother states understanding.
[2024-04-01] MEDS: IBUPROFEN 600 MG TABLET PO ×4 (01:24→22:44)
[2024-04-01] MEDS: HYDROcodone/acetaminophen (*CRX) 10-325 MG TABLET 1 TAB PO ×5 (01:24→21:36)
[2024-04-01] MEDS: ACETAMINOPHEN 325 MG TABLET 650 MG PO ×4 (01:24→22:44)
[2024-04-01] MEDS: LIDOCAINE 5% PATCH 1 PATCH TRANSDERM (01:24)
[2024-04-01 08:50] VITALS: BP 136/57; PULSE 80; RESP 20; TEMP 36.4
[2024-04-01] MEDS: DOCUSATE SODIUM 100 MG CAPSULE PO ×2 (09:59→16:36)
[2024-04-01] MEDS: POLYSACCHARIDE IRON COMPLEX 150 MG CAPSULE PO ×2 (09:59→16:36)
[2024-04-01] MEDS: SIMETHICONE 80 MG TAB.CHEW PO ×3 (09:59→16:36)
[2024-04-01] MEDS: MULTIVIT/MIN/PREN/FOL AC/IRON TABLET 1 TAB PO (09:59)
--- NOTE | 2024-04-01 10:08 | PM.OBPNVD ---
OB - PN: Subj Subjective Date/time seen: 04/01/24 10:08 Patient comments: no complaints, pain well controlled, incisional pain, tolerating diet and flatus present OB - PN: Obj Data Labs 03/31/24 03:33 OB - PN A/P Plan day: 2 Plan: routine care Comments: POD#2 LTCS - no problems, Time Spent With Patient Time: Total time spent is greater than 50% in coordination of care (as documented) at patient's floor/unit and/or counseling patient: Exam Const: General: comfortable, no acute distress and alert Resp: Effort & Inspection: normal respiratory effort Auscultation: no crackles, no rales and no rhonchi Cardio: Rate: regular rate Heart sounds: no click, no murmurs and no rubs GI: Inspection: non-distended Auscultation: normal bowel sounds Other: Incision - CDI Extrem: General: normal to inspection, no pedal edema and no calf tenderness
[2024-04-01] MEDS: HYDROcodone/acetaminophen (*CRX) 5-325 MG TABLET 1 TAB PO (14:11)
[2024-04-01 19:10] VITALS: BP 128/70; PULSE 82; RESP 16; TEMP 37
[2024-04-02] MEDS: LIDOCAINE 5% PATCH 1 PATCH TRANSDERM (01:23)
[2024-04-02] MEDS: HYDROcodone/acetaminophen (*CRX) 5-325 MG TABLET 1 TAB PO (01:23)
[2024-04-02] MEDS: ACETAMINOPHEN 325 MG TABLET 650 MG PO ×2 (05:09→11:46)
[2024-04-02] MEDS: IBUPROFEN 600 MG TABLET PO ×2 (05:09→11:46)
[2024-04-02] MEDS: HYDROcodone/acetaminophen (*CRX) 10-325 MG TABLET 1 TAB PO ×3 (05:13→15:46)
[2024-04-02 08:00] VITALS: PULSE 80; RESP 16; O2SAT 100
--- NOTE | 2024-04-02 08:31 | PM.OBPNVD ---
OB - PN: Subj Subjective Date/time seen: 04/02/24 08:31 Patient comments: no complaints, pain well controlled, incisional pain, tolerating diet and flatus present OB - PN: Obj Data Labs 03/31/24 03:33 OB - PN A/P Plan day: 3 Plan: routine care, discharge home and other Comments: Incision check in one week. Given precautions Time Spent With Patient Time: Total time spent is greater than 50% in coordination of care (as documented) at patient's floor/unit and/or counseling patient: Exam Const: General: comfortable, no acute distress and alert Resp: Effort & Inspection: normal respiratory effort Auscultation: no crackles, no rales and no rhonchi Cardio: Rate: regular rate Heart sounds: no click, no murmurs and no rubs GI: Inspection: non-distended GI Palp: No Tenderness to palpation present (GI) Auscultation: normal bowel sounds Other: Incision - CDI Extrem: General: normal to inspection, no pedal edema and no calf tenderness
--- NOTE | 2024-04-02 08:32 | PM.OBDSVD ---
DS: Admitting Diagnosis Discharge Date APRIL 02, 2024 Admitting Diagnosis TERM , PREVIOUS DS: Discharge Diagnosis Discharge Diagnosis (1) Previous delivery, delivered: Code(s): O34.219 - Maternal care for unspecified type scar from previous delivery Status: Acute OB - DS: Summary OB Procedures : None OB Procedures Intrapartum: OB Procedures: : None Peripartum Data Procedures: Procedures Operation Date: 03/30/24 07:30 Actual Procedure Side Surgeon p Repeat Section Not Applicable Zaid Gerardo MD Time Spent with Patient Time attestation: Total time spent providing and/or coordinating discharge services: Discharge Plan Discharge Discharging Clinician: Zaid Gerardo Patient Disposition: Home, Self-Care Activity: pelvic rest Diet: regular Patient Instructions: Antibiotic Form Stand Alone Forms: General Discharge Information Follow-up/Referrals: Zaid Gerardo MD [Physician] - Discharge Medications: New oxycodone-acetaminophen 5-325 mg tablet 1 tablet PO Q4H PRN (Reason: pain) Qty: 25 0RF Date of admission: 03/30/24 05:10 Primary Care Provider: UNKNOWN,DOCTOR Admitting Provider: Zaid Gerardo Attending physician on admission: Zaid Gerardo Condition: Stable
[2024-04-02] MEDS: SIMETHICONE 80 MG TAB.CHEW PO ×2 (09:22→11:45)
[2024-04-02] MEDS: MULTIVIT/MIN/PREN/FOL AC/IRON TABLET 1 TAB PO (09:22)
[2024-04-02] MEDS: DOCUSATE SODIUM 100 MG CAPSULE PO (09:22)
[2024-04-02] MEDS: POLYSACCHARIDE IRON COMPLEX 150 MG CAPSULE PO (09:22)
[2024-04-02 09:30] VITALS: BP 146/76; PULSE 80; RESP 16; TEMP 36.7; O2SAT 100
--- NOTE | 2024-04-02 12:25 | PC.NURSE ---
1115-DCFS electronic imager, Tamy, here to see patient.
--- NOTE | 2024-04-02 16:22 | PCCCNOTE ---
04/02/24 Received call from Tamy with [facility] ([phone]) who reports she will be coming to speak with pt. this morning and going to Asa HERNANDEZ home this afternoon to meet with him. Tamy is aware baby and pt. are ready for discharge today. 16:00 Received call from Tamy that she is on her way to the hospital to take custody of the child. Pt. and Asa aware of this and pt. is requesting discharge. Pt. has been given information to follow up for herself including PMD, counseling, housing and if needed substance information as she tested positive for marijuana during . Tamy plans to go stay with Asa and Asa' mother at discharge in [place]. Tamy also reports that pt. will be asked to complete these services through their department as well. RN made aware that RASHAD Morelos will be here shortly to take custody of the baby this afternoon.
--- NOTE | 2024-04-02 17:40 | PC.NURSE ---
1630-[facility] here to take protective custody of baby.
[2024-04-04 10:34] VITALS: BP 153/84; PULSE 77; RESP 18; TEMP 36.7; O2SAT 100
== END 2024-04-02 16:58 | disposition home or self-care (01) | DRG 540 ==
LOC: ANHLDR 05:14 → ANHOB2 12:31
PROVIDERS: Admitting Provider Obstetrics & Gynecology; Visit Provider Obstetrics & Gynecology
PROC: 10D00Z1 Extraction of Products of Conception, Low, Open Approach (ICD-10-PCS; CPT 59514; principal; 2024-03-30 07:30)
DX: O34.219 Maternal care for unspecified type scar from previous cesarean delivery (principal); O99.824 Streptococcus B carrier state complicating childbirth; Z3A.39 39 weeks gestation of pregnancy; Z37.0 Single live birth; Z87.891 Personal history of nicotine dependence
CPT/HCPCS: 36415; 85025; 86592; 86703; 86762; 86850; 86900; 86901; A9270; G0432; J0690; J1885; J2270; J2274; J2405; J7120

== ENCOUNTER 2024-04-04 10:44 | Observation (INO) | payer OTHER, SELFPAY ==
[2024-04-04] VITALS (144 sets, daily range): BP systolic 126–170; BP diastolic 67–94; PULSE 53–101; RESP 12–20; TEMP 36.2–36.9; O2SAT 90–100; BMI 38.8
--- NOTE | ~2024-04-04 | XR_ITS ---
EXAMINATION: XR chest 1V portable DATE: 04/04/2024 14:30 INDICATION: Chest tightness TECHNIQUE: frontal view of the chest was obtained. COMPARISON: None FINDINGS: The lungs are clear with no focal airspace opacities, pulmonary edema, pleural effusion or pneumothor ax. The cardiomediastinal silhouette is normal. 55 degree thoracic dextroscoliosis with moderate spon dylosis. IMPRESSION: 1. No acute cardiopulmonary disease. Reviewed, dictated and finalized at location A.
[2024-04-04 11:52] LABS: Basophils Percent Auto 0.2 % (0.2-1.2); Eosinophils Absolute Auto 0.3 K/mm3 (0-0.3); Eosinophils Percent Auto 2.4 % (0-4.4); Hematocrit 33.8 % (37.0-47.0); Hemoglobin 10.8 g/dL (12.0-15.0); Immature Granulocyte Absolute 0.03 K/mm3 (0.00-0.031); Immature Granulocyte Percent A 0.2 % (0-0.5); Lymphocytes Absolute Auto 2.07 K/mm3 (0.9-3.2); Lymphocytes Percent Auto 16.8 % (18.3-44.2); Mean Corpuscular Hemoglobin 30.3 pg (26-34); Mean Corpuscular Volume 94.9 fl (80-100); Mean Platelet Volume 9.7 fl (7.4-10.4); Monocytes Absolute Auto 0.9 K/mm3 (0.1-0.6); Monocytes Percent Auto 7.2 % (2.6-8.5); Neutrophils Percent Auto 73.2 % (45.5-73.1); Platelet Count Result 407 k/mm3 (150-375); Red Blood Count 3.56 M/mm3 (4.2-5.4); Red Cell Distribution Width 15.7 % (11.5-14.5); White Blood Count 12.3 K/mm3 (4.5-10.0)
--- NOTE | 2024-04-04 12:30 | PC.NURSE ---
Entered pt room after this severe BP of 170/94. Pt states she was moving when the cuff went off.
[2024-04-04] MEDS: IBUPROFEN 600 MG TABLET PO ×2 (12:41→18:22)
[2024-04-04 12:45] LABS: Alanine Aminotransferase 79 U/L (6-35); Albumin Level 4.1 g/dL (3.5-5.1); Alkaline Phosphatase 189 U/L (38-126); Anion Gap 6 mmol/L (4-12); Aspartate Amino Transferase 66 U/L (14-36); Bilirubin,Total 0.6 mg/dL (0.2-1.3); Blood Urea Nitrogen 14 mg/dL (7-17); Calcium 10.8 mg/dL (8.4-10.2); Carbon Dioxide 28 mmol/L (22-30); Chloride 104 mmol/L (98-107); Estimated Glomerular Filt Rate > 60; Glucose 96 mg/dL (65-110); Potassium 4.1 mmol/L (3.4-5.0); Sodium 138 mmol/L (137-145)
--- NOTE | 2024-04-04 13:05 | PC.NURSE ---
Dr. Gerardo informed of BP's including the 170/94 when she was moving and the 1300 one of 161/92. Discussed labs including elevated liver enzymes. also informed pt hasn't had a BM since she delivered on 03/30. Orders received for Magnesium sulfate, Procardia XL, repeat labs in 8 hrs, meds for pain control, and constipation.
[2024-04-04] MEDS: NIFEdipine 30 MG TAB.ER.24 PO (13:32)
[2024-04-04] MEDS: LACTATED RINGERS 1,000 ML 75 ML IV CONT (13:46)
[2024-04-04] MEDS: MAGNESIUM SULF 4 GM/WATER100ML 4 GM/100 ML BAG IVPB (13:47)
--- NOTE | 2024-04-04 14:05 | PC.NURSE ---
Dr. Gerardo informed pt c/o chest tightness while Magnesium bolus is infusing. Orders received for CXR, EKG, and cardiac enzymes.
--- NOTE | 2024-04-04 14:07 | ECG_ITS ---
SEE SCANNED COPY FOR CONFIRMED REPORT MTDD
--- NOTE | 2024-04-04 14:20 | PC.NURSE ---
Radiology here and portable chest x-ray performed.
[2024-04-04] MEDS: MAGNESIUM SULF 20GM/WATER500ML 500 ML 50 MG IV CONT (14:23)
--- NOTE | 2024-04-04 14:47 | PC.NURSE ---
Cardiology here and EKG performed. Asked them to have cardiology read as soon as possible.
[2024-04-04] MEDS: MAGNESIUM HYDROXIDE SUSP 30 ML UDC PO ×2 (15:35→23:38)
[2024-04-04 15:38] LABS: Creatine Kinase 93 U/L (30-135)
[2024-04-04 15:45] LABS: Troponin I < 0.012 ng/mL (0.000-0.034)
[2024-04-04] MEDS: ACETAMINOPHEN 500 MG TABLET 1000 MG PO (18:22)
[2024-04-04 20:35] LABS: Hematocrit 32.9 % (37.0-47.0); Hemoglobin 10.8 g/dL (12.0-15.0); Mean Corpuscular HGB Conc 32.8 g/dl (32-36); Mean Corpuscular Hemoglobin 30.3 pg (26-34); Mean Corpuscular Volume 92.2 fl (80-100); Platelet Count Result 492 k/mm3 (150-375); Red Blood Count 3.57 M/mm3 (4.2-5.4); Red Cell Distribution Width 14.8 % (11.5-14.5); White Blood Count 12.1 K/mm3 (4.5-10.0)
[2024-04-04 20:46] LABS: Alanine Aminotransferase 65 U/L (6-35); Albumin Level 3.6 g/dL (3.5-5.1); Alkaline Phosphatase 196 U/L (38-126); Anion Gap 5 mmol/L (4-12); Aspartate Amino Transferase 51 U/L (14-36); Bilirubin,Total 0.3 mg/dL (0.2-1.3); Blood Urea Nitrogen 14 mg/dL (7-17); Calcium 9.7 mg/dL (8.4-10.2); Carbon Dioxide 27 mmol/L (22-30); Chloride 103 mmol/L (98-107); Estimated CRCL calculation 127 ml/min; Estimated Glomerular Filt Rate > 60; Glucose 117 mg/dL (65-110); Potassium 3.9 mmol/L (3.4-5.0); Sodium 135 mmol/L (137-145)
--- NOTE | 2024-04-04 21:39 | PC.NURSE ---
Called Anitha Wilkerson CNM, update on pt, labs, and vital signs. Orders received to redraw CBC, CMP at 0500.
[2024-04-05] VITALS (103 sets, daily range): BP systolic 116–139; BP diastolic 63–80; PULSE 55–87; RESP 12–18; TEMP 36.3–36.6; O2SAT 92–100
[2024-04-05] MEDS: MAGNESIUM SULF 20GM/WATER500ML 500 ML 50 MG IV CONT (00:16)
[2024-04-05] MEDS: ACETAMINOPHEN 500 MG TABLET 1000 MG PO ×3 (00:22→12:36)
[2024-04-05] MEDS: IBUPROFEN 600 MG TABLET PO ×3 (00:22→12:36)
--- NOTE | 2024-04-05 02:08 | PC.NURSE ---
Pt sleeping when rounding with even respirations.
[2024-04-05] MEDS: LACTATED RINGERS 1,000 ML 75 ML IV CONT (03:01)
[2024-04-05 05:21] LABS: Basophils Percent Auto 0.2 % (0.2-1.2); Eosinophils Absolute Auto 0.5 K/mm3 (0-0.3); Eosinophils Percent Auto 4.4 % (0-4.4); Hematocrit 34.4 % (37.0-47.0); Hemoglobin 11.1 g/dL (12.0-15.0); Immature Granulocyte Absolute 0.03 K/mm3 (0.00-0.031); Immature Granulocyte Percent A 0.3 % (0-0.5); Lymphocytes Absolute Auto 1.98 K/mm3 (0.9-3.2); Lymphocytes Percent Auto 19.5 % (18.3-44.2); Mean Corpuscular HGB Conc 32.3 g/dl (32-36); Mean Corpuscular Hemoglobin 30.2 pg (26-34); Mean Corpuscular Volume 93.5 fl (80-100); Monocytes Absolute Auto 0.7 K/mm3 (0.1-0.6); Monocytes Percent Auto 7.2 % (2.6-8.5); Neutrophils Percent Auto 68.4 % (45.5-73.1); Platelet Count Result 492 k/mm3 (150-375); Red Blood Count 3.68 M/mm3 (4.2-5.4); Red Cell Distribution Width 14.9 % (11.5-14.5); White Blood Count 10.2 K/mm3 (4.5-10.0)
[2024-04-05 05:30] LABS: Alanine Aminotransferase 64 U/L (6-35); Albumin Level 3.7 g/dL (3.5-5.1); Alkaline Phosphatase 193 U/L (38-126); Anion Gap 5 mmol/L (4-12); Aspartate Amino Transferase 46 U/L (14-36); Bilirubin,Total 0.4 mg/dL (0.2-1.3); Blood Urea Nitrogen 14 mg/dL (7-17); Carbon Dioxide 26 mmol/L (22-30); Chloride 103 mmol/L (98-107); Estimated CRCL calculation 127 ml/min; Estimated Glomerular Filt Rate > 60; Glucose 92 mg/dL (65-110); Potassium 4.3 mmol/L (3.4-5.0); Sodium 134 mmol/L (137-145)
--- NOTE | 2024-04-05 06:12 | PC.NURSE ---
Report given to Dari Armas RN.
[2024-04-05] MEDS: MAGNESIUM HYDROXIDE SUSP 30 ML UDC PO (08:07)
--- NOTE | 2024-04-05 08:18 | PM.IMHP ---
H&P: HPI History of Present Illness Date/Time: 04/05/24 08:18 Chief Complaint: swelling, headache Narrative: 34-year-old female presents with swelling and headache after delivery. She is postop day 6. From a delivery. She was found to have elevated blood pressures, elevated liver enzymes, swelling. Headache. She was put on magnesium sulfate for a period of observation. She was watched overnight. Her blood pressures were stable. antihypertensives were used. Fluid present and stable. Will watch her for 24 hours. She was discontinued off magnesium sulfate for a period of observation off magnesium sulfate. Her liver enzymes are declining. She will be discharged later on antihypertensives. She will follow-up in 3 days. [facility] Family History Family History Mother Asthma Chronic obstructive pulmonary disease Hypertension Father Cerebrovascular accident Social History Social History Smoking status: Former smoker Second hand tobacco smoke exposure: Yes Last use: unknown, quit Do You Feel Safe in your Home?: Yes Lack of Transportation: No Lack of Food: Never True Current Housing: I Have Housing Concerned About Future Housing: No Difficulty Paying Gas/Electric Bills: No Difficulty Paying for Meds: No Currently Unemployed: No Education: High School Diploma/GED Difficulty w/ Childcare or Family Care: No Spiritual care concerns: No Meds Home Medications and Allergies Home Medications Medication Instructions Recorded Confirmed Type oxycodone-acetaminophen 5 mg-325 1 tablet PO Q4H PRN pain #25 tabs 04/02/24 04/04/24 Rx mg tablet Allergies Allergy/AdvReac Type Severity Reaction Status Date / Time No Known Allergies Allergy Verified 01/14/24 14:55 Vital Signs Vital Signs - 24 hr 04/04/24 11:10 04/04/24 11:15 04/04/24 11:20 Temperature Pulse Rate 74 71 Respiratory Rate Blood Pressure 151/89 H 148/84 H Blood Pressure [Right Arm] Pulse Oximetry 99 100 99 Oxygen Delivery 04/04/24 11:22 04/04/24 11:27 04/04/24 11:32 Temperature Pulse Rate Respiratory Rate Blood Pressure Blood Pressure [Right Arm] Pulse Oximetry 100 100 100 Oxygen Delivery 04/04/24 11:35 04/04/24 11:40 04/04/24 11:45 Temperature Pulse Rate Respiratory Rate Blood Pressure Blood Pressure [Right Arm] Pulse Oximetry 99 100 99 Oxygen Delivery 04/04/24 11:50 04/04/24 12:18 04/04/24 12:30 Temperature Pulse Rate 62 72 Respiratory Rate Blood Pressure 149/72 H 170/94 H Blood Pressure [Right Arm] Pulse Oximetry 97 Oxygen Delivery 04/04/24 12:43 04/04/24 12:51 04/04/24 12:56 Temperature Pulse Rate 68 Respiratory Rate Blood Pressure 148/79 H Blood Pressure [Right Arm] Pulse Oximetry 97 100 Oxygen Delivery 04/04/24 13:00 04/04/24 13:01 04/04/24 13:03 Temperature Pulse Rate 61 59 L Respiratory Rate Blood Pressure 161/92 H 155/68 H Blood Pressure [Right Arm] Pulse Oximetry 100 Oxygen Delivery 04/04/24 13:06 04/04/24 13:11 04/04/24 13:15 Temperature Pulse Rate 81 Respiratory Rate Blood Pressure 156/80 H Blood Pressure [Right Arm] Pulse Oximetry 99 99 Oxygen Delivery 04/04/24 13:16 04/04/24 13:21 04/04/24 13:26 Temperature Pulse Rate Respiratory Rate Blood Pressure Blood Pressure [Right Arm] Pulse Oximetry 97 98 100 Oxygen Delivery 04/04/24 13:30 04/04/24 13:31 04/04/24 13:36 Temperature Pulse Rate 86 Respiratory Rate Blood Pressure 170/88 H Blood Pressure [Right Arm] Pulse Oximetry 99 100 Oxygen Delivery 04/04/24 13:41 04/04/24 13:45 04/04/24 13:46 Temperature Pulse Rate 73 Respiratory Rate Blood Pressure 149/81 H Blood Pressure [Right Arm] Puls
--- NOTE | 2024-04-05 08:29 | PC.NURSE ---
0750- Dr. Gerardo on unit, reported vital signs and lab results. Orders received to discontinue magnesium. Patient in agreement with plan of care.
[2024-04-05] MEDS: NIFEdipine 30 MG TAB.ER.24 PO (09:57)
--- NOTE | 2024-04-05 12:29 | PC.NURSE ---
1205- Dr. Gerardo notified of patient's blood pressure, okay to discharge
--- NOTE | 2024-04-29 19:54 | PM.OBTRLD ---
OB - Triage/Final Diagnosis Visit Information Comments/Additional reasons for admission: I have assessed the risk for this patient, Joshua Deleon, and determined that she would benefit from observation care. Evaluation Laboratory results: Laboratory Tests 04/04/24 04/04/24 04/04/24 11:34 12:07 14:58 WBC 12.3 H RBC 3.56 L Hgb 10.8 L Hct 33.8 L MCV 94.9 MCH 30.3 MCHC 32.0 RDW 15.7 H Plt Count 407 H MPV 9.7 Immature Gran % (Auto) 0.2 Neut % (Auto) 73.2 H Lymph % (Auto) 16.8 L [place] % (Auto) 7.2 Eos % (Auto) 2.4 Baso % (Auto) 0.2 Lymph # (Auto) 2.07 [place] # (Auto) 0.9 H Eos # (Auto) 0.3 Baso # (Auto) 0.0 Abs Immat Gran (auto) 0.03 Absolute Neuts (auto) 9.0 H Absolute Nucleated RBC 0.000 Nucleated RBC % 0.0 Sodium 138 Potassium 4.1 Chloride 104 Carbon Dioxide 28 Anion Gap 6 BUN 14 Creatinine 0.60 L Estim Creat Clear Calc Not Reportable Estimated GFR > 60 Glucose 96 Uric Acid 6.0 Calcium 10.8 H Total Bilirubin 0.6 AST 66 H ALT 79 H Alkaline Phosphatase 189 H Total Creatine Kinase 93 CK-MB (CK-2) Cancelled Troponin I < 0.012 Total Protein 8.0 Albumin 4.1 04/04/24 04/05/24 19:58 05:02 WBC 12.1 H 10.2 H RBC 3.57 L 3.68 L Hgb 10.8 L 11.1 L Hct 32.9 L 34.4 L MCV 92.2 93.5 MCH 30.3 30.2 MCHC 32.8 32.3 RDW 14.8 H 14.9 H Plt Count 492 H 492 H MPV 9.0 9.0 Immature Gran % (Auto) 0.3 Neut % (Auto) 68.4 Lymph % (Auto) 19.5 [place] % (Auto) 7.2 Eos % (Auto) 4.4 Baso % (Auto) 0.2 Lymph # (Auto) 1.98 [place] # (Auto) 0.7 H Eos # (Auto) 0.5 H Baso # (Auto) 0.0 Abs Immat Gran (auto) 0.03 Absolute Neuts (auto) 7.0 H Absolute Nucleated RBC 0.000 Nucleated RBC % 0.0 Sodium 135 L 134 L Potassium 3.9 4.3 Chloride 103 103 Carbon Dioxide 27 26 Anion Gap 5 5 BUN 14 14 Creatinine 0.60 L 0.60 L Estim Creat Clear Calc 127 127 Estimated GFR > 60 > 60 Glucose 117 H 92 Uric Acid Calcium 9.7 9.0 Total Bilirubin 0.3 0.4 AST 51 H 46 H ALT 65 H 64 H Alkaline Phosphatase 196 H 193 H Total Creatine Kinase CK-MB (CK-2) Troponin I Total Protein 7.0 7.0 Albumin 3.6 3.7 Final Diagnosis (1) Headache: Code(s): R51.9 - Headache, unspecified Status: Acute
== END 2024-04-05 13:40 ==
LOC: ANHOBOP 10:50 → ANHOBPP 10:50 → ANHOBOP 13:29 → ANHOBPP 13:29
PROVIDERS: Advanced Practice Midwife; Admitting Provider Obstetrics & Gynecology; Visit Provider Obstetrics & Gynecology
DX: O14.95 Unspecified pre-eclampsia, complicating the puerperium (principal)
CPT/HCPCS: 36415; 71045; 80053; 82550; 84484; 84550; 85025; 85027; 93005; 96365; 96366; A9270; G0378; G0379; J3475; J7120

== ENCOUNTER 2024-06-27 02:01 | Day surgery (SDC) | payer OTHER, SELFPAY ==
--- NOTE | 2024-06-25 16:35 | PC.NURSE ---
Report to the Outpatient Waiting Room, entrance under the green pavilion located off [facility], at time 0700 on date 06/27/24. Planned Procedure Time: 0900. Time changes happen often and if your time is changed the preop area will call you the afternoon before. - You and your visitor will be asked to self-screen and do not enter if you have any COVID symptoms. - A mask is optional within the hospital at this time. Patients may have clear liquids (water, carbonated beverages, clear teas, apple juice) until 3 hours prior to surgery with a maximum of 20 ounces. 0600 - No food from midnight until time of surgery - Infants may have breast milk until 4 hours before surgery, formula 6 hours prior to surgery. - Children will be allowed to drink immediately following surgery. If applicable, please bring a bottle or sippy cup to assist with drinking. Juice, water, soda, and popsicles are readily available. For infants on formula, please bring formula the day of surgery. Pacifiers are allowed. Take the following medications with a SIP of water the morning of surgery: None DO NOT STOP ANY OF YOUR OTHER PRESCRIPTION MEDICATIONS PRIOR TO SURGERY ?EXCEPT THE FOLLOWING Medications to discontinue per physician N/A Please no make-up, nail algerian, hairspray, perfume, deodorant, or body powder the day of surgery. No jewelry (including any body piercings) or valuables the day of surgery, leave them at home. Please take a shower or bath the night before, or the morning of, surgery with an antibacterial soap. Wear comfortable, loose fitting clothing. Children are encouraged to wear pajamas. - Jewelry must be removed prior to entering the operating room. Rings and piercings that are not removed may be cut off. - The hospital will not accept responsibility for valuables. - Please leave all valuables, including medications, at home the day of surgery. If you are going home after surgery, a licensed dumpster driver must drive you home. - NO public transportation without another adult if you receive anesthesia. - We recommend that an adult stay with you for 24 hours following discharge. - We also recommend that you do not drive, make important decision, drink alcoholic beverages, or take any drugs that were not prescribed by your health care provider for at least 24 hours after your discharge time. For Pediatric surgeries, we recommend two adults accompany the child home. Follow any additional instructions given to you from your surgeon. If you or anyone in your household have experienced Covid symptoms in the past week, please notify your surgeon or the nurse liaison at the phone number below for possible testing. Telephone instructions given to Patient- Joshua Deleon and asked if any additional questions and then verbalized understanding. Patient advised to call surgeon office or pre surgery nurse liaison [phone] if any additional questions.
--- NOTE | 2024-06-25 16:48 | PC.NURSE ---
Patient information reviewed with patient and also patient's Asa. Patient was unable to provide current weight.
[2024-06-27] VITALS (9 sets, daily range): BP systolic 118–165; BP diastolic 49–82; PULSE 44–72; RESP 12–20; TEMP 36.4–36.7; O2SAT 100
[2024-06-27] MEDS: ACETAMINOPHEN 500 MG TABLET 1000 MG PO (08:06)
--- NOTE | 2024-06-27 08:16 | WPDHPUPDATE1 ---
History and Physical Update Update Date/Time: 06/27/24 08:16 History and Physical has been reviewed, including an updated exam of the patient. There are NO changes in the patient's condition. Risks, benefits, and alternatives have been discussed and questions answered. Patient agrees to proceed with procedure.
--- NOTE | 2024-06-27 08:18 | PM.IMHP ---
H&P: HPI History of Present Illness Date/Time: 06/27/24 08:18 Chief Complaint: unwanted fertility Narrative: 34-year-old female who desires female sterilization. We agreed to perform laparoscopic bilateral salpingectomy. The patient understands the details of the procedure. The procedure has been explained in detail. She understands the risks. She understands that injuries may occur that result in hospitalization, more surgery, and severe illness. She understands risk of hemorrhage and infection. She denies any chest pain or shortness of breath. She denies any nausea, vomiting, fever, chills. Review of Systems Review of Systems: All systems reviewed & are unremarkable except as noted in HPI and below Constitutional: Constitutional: Denies chills, Denies fatigue, Denies fever(s) and Denies weakness Eyes: Eyes: Denies blurry vision, Denies change in vision, Denies loss of peripheral vision, Denies loss of vision, Denies other visual disturbances and Denies eye pain ENT: Denies vertigo, Denies dizziness, Denies hearing loss, Denies mouth pain, Denies nasal obstruction, Denies neck mass and Denies neck pain Cardiovascular: Cardiovascular: Denies chest pain, Denies diaphoresis, Denies syncope, Denies leg edema and Denies dyspnea Respiratory: Respiratory: Denies chest congestion, Denies cough, Denies hemoptysis, Denies dyspnea and Denies wheezing Gastrointestinal: Gastrointestinal: Denies abdominal pain, Denies constipation, Denies diarrhea, Denies nausea and Denies vomiting Genitourinary: Genitourinary: Denies hematuria, Denies change in libido, Denies nocturia, Denies genital lesions, Denies flank pain and Denies urinary urgency Musculoskeletal: Musculoskeletal: Denies abnormal gait, Denies back pain, Denies myalgias, Denies arthralgias, Denies joint swelling, Denies muscle weakness and Denies neck pain Integumentary/Breasts: Skin/Breast: Denies swelling, Denies breast pain, Denies breast mass, Denies dry skin, Denies nipple discharge, Denies unusual bruising and Denies jaundice Neurologic: Denies Neuro-related abnormal movements, Denies Abnormal speech present, Denies abnormal gait, Denies behavioral changes, Denies confusion, Denies vertigo, Denies dizziness, Denies syncope, Denies loss of vision, Denies memory loss, Denies convulsions and Denies weakness Psychiatric: Psychiatric: Denies abnormal sleep pattern, Denies behavioral changes, Denies change in libido, Denies confusion, Denies depression, Denies anhedonia and Denies memory loss Endocrine: Endocrine: Reports no additional endocrine complaints, Denies change in libido and Denies fatigue Hematologic/Lymphatic: Hematologic/Lymphatic: Reports no additional hematologic/lymphatic complaints Allergic/Immunologic: Allergic/Immunologic: Reports no additional allergic/immunologic complaints and Denies wheezing PMFSH Family History Family History Mother Asthma Chronic obstructive pulmonary disease Hypertension Father Cerebrovascular accident Social History Social History Smoking packs per day: 0.5 Smoking cigarettes per day: 10.0 Years smoked: 15 Smoking pack-years: 7.50 Smoking status: Current every day smoker Tobacco type: cigarettes Second hand tobacco smoke exposure: Yes Drinks per week: 2 Substance use type: marijuana Other substance usage details: 1-2 daily Last use: unknown, quit Do You Feel Safe in your Home?: Yes Lack of Transportation: No Lack of Food: Never True Current Housing: I Have Housing Concerned About Future Housing: No Difficulty Paying Gas/Electric Bills: No Difficulty Paying for Meds: No Currently Unemployed: No Education: High School Diploma/GED Difficulty w/ Childcare or Family Care: No Spiritual care concerns: No Meds Home Medications and Allergies Home Medications Medicati
[2024-06-27] MEDS: KETOROLAC 15 MG/ML VIAL (*BKC) IV PUSH (08:20)
[2024-06-27] MEDS: LACTATED RINGERS 1,000 ML 30 ML IV CONT ×2 (08:20→09:45)
--- NOTE | 2024-06-27 08:28 | P.PNAN_ITS ---
Anes - Initial Pre Proc Eval Procedure: Operation Date: 06/27/24 09:00 Proposed Procedures p Laparoscopic Bilateral Salpingectomy - Zaid Gerardo MD Date/Time: 06/27/24 08:28 Surgeon: Zaid Gerardo MD Pre Op Diagnosis: Female Sterilization Patient Data Age: 34 Gender: F Height: 1.57 m Weight: Allergies Allergy/AdvReac Type Severity Reaction Status Date / Time No Known Allergies Allergy Verified 06/27/24 07:58 Home Medications Medication Instructions Recorded Confirmed Type No Home Medications 06/25/24 06/25/24 History Patient hx anesthesia problems: none Family hx anesthesia problems: none Results Review: All pre-operative results and documents have been reviewed as part of the pre- operative evaluation. [facility] Family History Family History Mother Asthma Chronic obstructive pulmonary disease Hypertension Father Cerebrovascular accident Social History Social History Smoking packs per day: 0.5 Smoking cigarettes per day: 10.0 Years smoked: 15 Smoking pack-years: 7.50 Smoking status: Current every day smoker Tobacco type: cigarettes Second hand tobacco smoke exposure: Yes Drinks per week: 2 Substance use type: marijuana Other substance usage details: 1-2 daily Last use: unknown, quit Do You Feel Safe in your Home?: Yes Lack of Transportation: No Lack of Food: Never True Current Housing: I Have Housing Concerned About Future Housing: No Difficulty Paying Gas/Electric Bills: No Difficulty Paying for Meds: No Currently Unemployed: No Education: High School Diploma/GED Difficulty w/ Childcare or Family Care: No Spiritual care concerns: No Anes - Eval Final PreProcedure Day of Procedure 06/27/24 08:28 Patient weight: obese Heart: regular rate and rhythm Lungs: clear to auscultation Airway: Mallampati scale class II Neurological: alert and oriented Last oral intake: >/= 8 hours ASA classification: II Emergent: no Anesthetic plan: proceed Anesthesia type and monitoring: general ETT and standard monitoring Results Review: All pre-operative results and documents have been reviewed as part of the pre- operative evaluation. Informed Consent: The patient's anesthetic plan and its attendant risks and benefits were discussed with the patient/family/POA. Questions were solicited and answers provided to the satisfaction of the patient/family/POA.
[2024-06-27 08:40] LABS: BEDSIDEPREGUCG Negative
[2024-06-27 08:49] LABS: BEDSIDEPREGUCG Negative
--- NOTE | 2024-06-27 09:28 | P.OP_ITS ---
Procedure Note - Detailed Date of Procedure 06/27/24 Pre-op Diagnosis Female Sterilization Post-op Diagnosis Same Procedure Performed Laparoscopic bilateral salpingectomy Surgeon Zaid Gerardo MD Anesthesia General Indications Unwanted fertility Findings Normal pelvic anatomy Description of Procedure The patient was taken the operating room. She was prepped and draped in the dorsal lithotomy position after induction of general anesthesia. A 5 mm skin incision was made in the left upper quadrant of the abdominal skin. A 5 mm trocar was inserted the intra-abdominal cavity under direct visualization of the scope. Pneumoperitoneum was achieved. A 5 mm trocar was inserted in the left lower quadrant identical fashion. A 5 mm infraumbilical trocar was inserted in identical fashion as well. The bilateral fallopian tubes were removed. This was done by using a LigaSure cautery. The mesosalpinx adjacent to the tube was cauterized transected with LigaSure. This was initiated in the area the ovary and in a stepwise fashion moved medially to the area of the cornu of the uterus. Once there the fallopian tube was cauterized and transected. This was done in identical fashion on each side. The fallopian tubes were taken out through the left lower quadrant trocar site. The pneumoperitoneum was reduced. The trocars removed. The skin was closed with subcuticular 4 Monocryl and covered with De rmabond. She was taken to cover stable condition. Sponge lap and needle counts were correct x2. Estimated Blood Loss 5 Drains No Packing No Pathology Yes Complications No immediate complications Condition Stable Disposition PACU
[2024-06-27] MEDS: ONDANSETRON INJ 4 MG/2 ML VIAL IV PUSH (09:42)
[2024-06-27] MEDS: fentaNYL CITRATE INJ (*CRX) 100 MCG/2 ML VIAL 25 MCG IV PUSH ×2 (10:01→10:03)
== END 2024-06-27 11:57 | disposition home or self-care (01) ==
PROVIDERS: Visit Provider Obstetrics & Gynecology
PROC: (CPT 49320; principal; 2024-06-27 09:00)
DX: Z30.2 Encounter for sterilization (principal); F17.210 Nicotine dependence, cigarettes, uncomplicated; E66.9 Obesity, unspecified; Z68.36 Body mass index [BMI] 36.0-36.9, adult
CPT/HCPCS: 58661; 88302; A9270; J0330; J1100; J1885; J2250; J2405; J2704; J3010; J7120